=== PATIENT | male | born 1945 | race Caucasian/White ===

== ENCOUNTER 2018-08-18 12:37 | Emergency (ER) | payer MEDICARE, MEDICAID ==
[~2018-08-18] VITALS: Ht 177.8 cm; Wt 109.1 kg
[~2018-08-18 12:37] MED LIST: ONDA4TAB6 PO
[2018-08-18 12:39] VITALS: BP 110/46
[2018-08-18] MEDS ORDERED: HYDROcodone/acetaminophen 10/325mg tab PO PRN (13:25)
[2018-08-18] MEDS ORDERED: HYDR-4383 PO (13:29)
[2018-08-18] MEDS ORDERED: ketorolac trometh inj. 60 MG/2 ML VIAL IM ONE (14:00)
== END 2018-08-18 14:16 | disposition home or self-care (01) ==
LOC: ER 12:37
DX: S52.591A Other fractures of lower end of right radius, initial encounter for closed fracture (principal); I25.10 Atherosclerotic heart disease of native coronary artery without angina pectoris; I10 Essential (primary) hypertension; I25.2 Old myocardial infarction; E11.9 Type 2 diabetes mellitus without complications; G89.29 Other chronic pain; Z90.49 Acquired absence of other specified parts of digestive tract; Z79.899 Other long term (current) drug therapy; W01.0XXA Fall on same level from slipping, tripping and stumbling without subsequent striking against object, initial encounter; Y93.89 Activity, other specified; Y92.89 Other specified places as the place of occurrence of the external cause; Y99.8 Other external cause status
CPT/HCPCS: 29125; 73110; 96372; 99284; J1885

== ENCOUNTER 2018-08-22 13:03 | Outpatient (CLI) | payer MEDICARE, MEDICAID ==
[~2018-08-22 13:03] MED LIST changes: +HYDR-4383 PO
[2018-08-22 13:06] VITALS: BP 100/69
[2018-08-22] MEDS ORDERED: LIDOcaine 1%/PF 5ML 10 MG/ML VIAL ONE (13:45)
[2018-08-22 17:19] VITALS: BP 100/69
== END 2018-08-22 14:58 | disposition home or self-care (01) ==
LOC: ORTHO 13:03
PROVIDERS: ATTEND Nurse Practitioner Family
DX: S52.591A Other fractures of lower end of right radius, initial encounter for closed fracture (principal); E11.9 Type 2 diabetes mellitus without complications; I25.2 Old myocardial infarction; F17.200 Nicotine dependence, unspecified, uncomplicated; W01.0XXA Fall on same level from slipping, tripping and stumbling without subsequent striking against object, initial encounter; Y93.89 Activity, other specified; Y92.89 Other specified places as the place of occurrence of the external cause; Y99.8 Other external cause status
CPT/HCPCS: 73100; 73110; G0463; J2001

== ENCOUNTER 2018-09-04 11:17 | Outpatient (CLI) | payer MEDICARE, MEDICAID ==
[2018-09-04 11:14] VITALS: BP 110/74
== END 2018-09-04 11:41 | disposition home or self-care (01) ==
LOC: ORTHO 11:17
PROVIDERS: ATTEND Nurse Practitioner Family
DX: S52.591G Other fractures of lower end of right radius, subsequent encounter for closed fracture with delayed healing (principal); F17.210 Nicotine dependence, cigarettes, uncomplicated; F12.90 Cannabis use, unspecified, uncomplicated; E11.9 Type 2 diabetes mellitus without complications; G89.29 Other chronic pain; M19.90 Unspecified osteoarthritis, unspecified site; Z86.73 Personal history of transient ischemic attack (TIA), and cerebral infarction without residual deficits; W01.0XXD Fall on same level from slipping, tripping and stumbling without subsequent striking against object, subsequent encounter
CPT/HCPCS: 73100; 99213

== ENCOUNTER 2018-09-25 15:11 | Outpatient (CLI) | payer MEDICARE, MEDICAID ==
[2018-09-25 15:26] VITALS: BP 102/69
== END 2018-09-25 15:49 | disposition home or self-care (01) ==
LOC: ORTHO 15:11
PROVIDERS: ATTEND Orthopaedic Surgery
DX: S52.591G Other fractures of lower end of right radius, subsequent encounter for closed fracture with delayed healing (principal); E11.9 Type 2 diabetes mellitus without complications; I25.2 Old myocardial infarction; F17.200 Nicotine dependence, unspecified, uncomplicated; X58.XXXD Exposure to other specified factors, subsequent encounter
CPT/HCPCS: 73110; 99213

== ENCOUNTER 2019-07-17 12:40 | Emergency (ER) | payer MEDICARE, MEDICAID ==
[2019-07-17 13:37] LABS: BASOPHILS % (AUTO) 0.5 % (0-1); EOSINOPHILS # (AUTO) 0.3 X10'3 (0-0.9); EOSINOPHILS % (AUTO) 2.4 % (0-6); HEMOGLOBIN 15.4 g/dl (14.0-17.9); LYMPHOCYTES # (AUTO) 3.1 X10'3 (1.1-4.8); LYMPHOCYTES % (AUTO) 29.1 % (21-51); MEAN CORPUSCULAR HEMOGLOBIN 30.4 PG (27.0-31.0); MEAN CORPUSCULAR HGB CONC 34.3 g/dL (33.0-36.5); MEAN CORPUSCULAR VOLUME 88.6 FL (78-98); MEAN PLATELET VOLUME 7.6 FL (7.4-10.4); MONOCYTES # (AUTO) 0.9 X10'3 (0-0.9); MONOCYTES % (AUTO) 8.5 % (2-12); NEUTROPHILS # (AUTO) 6.2 X10'3 (1.8-7.7); NEUTROPHILS % (AUTO) 59.5 % (42-75); PLATELET COUNT 280 X10'3 (140-440); RED BLOOD COUNT 5.08 X10'6 (4.70-6.10); RED CELL DISTRIBUTION WIDTH 12.7 % (11.5-14.5); WHITE BLOOD COUNT 10.5 X10'3 (4.5-11.0)
--- NOTE | 2019-07-17 13:46 | NUR ---
PT. to CT
[2019-07-17 13:47] LABS: ALANINE AMINOTRANSFERASE 15 U/L (12-78); ALBUMIN 3.6 G/DL (3.4-5.0); ALBUMIN/GLOBULIN RATIO 0.9 (1.1-1.5); ALKALINE PHOSPHATASE 102 IU/L (46-116); ANION GAP 9 (8-16); ASPARTATE AMINO TRANSFERASE 10 U/L (10-37); BILIRUBIN,TOTAL 0.3 MG/DL (0.1-1.0); BLOOD UREA NITROGEN 12 MG/DL (7-18); BUN/CREATININE RATIO 14.8 (5.4-32.0); CHLORIDE 104 MMOL/L (99-107); CREATININE 0.81 MG/DL (0.60-1.10); GLUCOSE 215 MG/DL (70-104); POTASSIUM 4.1 MMOL/L (3.5-5.1); SODIUM 137 MMOL/L (135-145); TOTAL CARBON DIOXIDE 24.5 MMOL/L (24-32); TOTAL PROTEIN 7.5 G/DL (6.4-8.2); eGFR > 90 ML/MIN
[2019-07-17 13:57] LABS: ETHANOL < 0.010 GM/DL (0.0-0.010)
[2019-07-17 14:08] LABS: PARTIAL THROMBOPLASTIN TIME 26 SECONDS (22-32)
[2019-07-17] MEDS ORDERED: acetaminophen 325mg tablet PO ONE (14:30)
[2019-07-17] MEDS ORDERED: iohexol 350MG/ML 100ml bottle IV ONE (15:14)
[2019-07-17 16:24] LABS: CLARITY,URINE CLEAR (Clear); COLOR,URINE YELLOW (Yellow); GLUCOSE, URINE NEGATIVE (Neg); KETONES,URINE NEGATIVE (Neg); LEUKOCYTE ESTERASE ,URINE NEGATIVE (Neg); NITRITES, URINE NEGATIVE (Neg); OCCULT BLOOD,URINE NEGATIVE (Neg); PH,URINE 5.5 (4.8-8.0); PROTEIN,URINE TRACE mg/dl (Neg); UROBILINOGEN,URINE 0.2 E.U/dL (0.2-1.0)
[2019-07-17 16:26] LABS: UA COLLECTION TYPE NON-SPECIFIED
[2019-07-17 16:29] LABS: URINE AMPHETAMINE SCREEN NEGATIVE (Neg); URINE BARBITUATE SCREEN NEGATIVE (Neg); URINE BENZODIAZEPINES SCREEN NEGATIVE (Neg); URINE CANNABINOID SCREEN NEGATIVE (Neg); URINE COCAINE SCREEN NEGATIVE (Neg); URINE METHADONE SCREEN NEGATIVE (Neg); URINE OPIATE SCREEN POSITIVE (Neg); URINE PHENCYCLIDINE SCREEN NEGATIVE (Neg)
[2019-07-17 16:31] LABS: BACTERIA,URINE NONE SEEN /HPF (Neg); RBC,URINE NONE SEEN /HPF (0-2); SQUAMOUS EPITHELIAL CELL,UR FEW /LPF (FEW); WBC,URINE 0-4 /HPF (0-4)
[2019-07-17 16:32] LABS: MUCUS STRANDS NONE SEEN /LPF (Neg)
[2019-07-17 17:14] VITALS: BP 130/45
== END 2019-07-17 17:12 | disposition home or self-care (01) ==
LOC: ER 12:42
DX: H49.02 Third [oculomotor] nerve palsy, left eye (principal); H02.402 Unspecified ptosis of left eyelid; E11.9 Type 2 diabetes mellitus without complications; H53.2 Diplopia; I25.10 Atherosclerotic heart disease of native coronary artery without angina pectoris; I10 Essential (primary) hypertension; I25.2 Old myocardial infarction; G89.29 Other chronic pain; F12.90 Cannabis use, unspecified, uncomplicated; F17.200 Nicotine dependence, unspecified, uncomplicated; Z79.4 Long term (current) use of insulin; Z90.49 Acquired absence of other specified parts of digestive tract
CPT/HCPCS: 36415; 70450; 70496; 71045; 80053; 80305; 80320; 81001; 82948; 84443; 85025; 85610; 85730; 93005; 99285; Q9967

== ENCOUNTER 2019-08-02 06:34 | Emergency (ER) | payer MEDICARE, MEDICAID ==
[~2019-08-02] VITALS: Ht 177.8 cm; Wt 97.3 kg
[2019-08-02] MEDS ORDERED: ketorolac trometh inj. 60 MG/2 ML VIAL IM ONE (07:00)
[2019-08-02] MEDS ORDERED: ketorolac trometh. 30mg/ml inj. IM ONE (07:00)
[2019-08-02 08:02] VITALS: BP 156/101
== END 2019-08-02 08:04 | disposition home or self-care (01) ==
LOC: ER 06:35
DX: R51 Headache (principal); I25.10 Atherosclerotic heart disease of native coronary artery without angina pectoris; I10 Essential (primary) hypertension; I25.2 Old myocardial infarction; E11.9 Type 2 diabetes mellitus without complications; F17.200 Nicotine dependence, unspecified, uncomplicated; F12.90 Cannabis use, unspecified, uncomplicated; Z72.89 Other problems related to lifestyle; Z98.890 Other specified postprocedural states; Z90.49 Acquired absence of other specified parts of digestive tract; Z79.899 Other long term (current) drug therapy
CPT/HCPCS: 96372; 99283; J1885

== ENCOUNTER 2021-01-05 18:31 | Emergency (ER) | payer MEDICARE, MEDICAID ==
[~2021-01-05] VITALS: Ht 177.8 cm; Wt 108.0 kg
[2021-01-05] MEDS ORDERED: normal saline 1000ML IV soln IVB ONE (18:40)
[2021-01-05 19:04] LABS: BASOPHILS # (AUTO) 0.1 X10'3 (0-0.2); BASOPHILS % (AUTO) 0.6 % (0-1); EOSINOPHILS # (AUTO) 0.1 X10'3 (0-0.9); LYMPHOCYTES # (AUTO) 1.2 X10'3 (1.1-4.8); LYMPHOCYTES % (AUTO) 9.8 % (21-51); MEAN CORPUSCULAR HEMOGLOBIN 29.9 PG (27.0-31.0); MEAN CORPUSCULAR HGB CONC 33.3 g/dL (33.0-36.5); MEAN PLATELET VOLUME 8.2 FL (7.4-10.4); MONOCYTES # (AUTO) 0.9 X10'3 (0-0.9); MONOCYTES % (AUTO) 7.8 % (2-12); NEUTROPHILS # (AUTO) 9.5 X10'3 (1.8-7.7); NEUTROPHILS % (AUTO) 80.8 % (42-75); PLATELET COUNT 283 X10'3 (140-440); RED CELL DISTRIBUTION WIDTH 13.4 % (11.5-14.5); WHITE BLOOD COUNT 11.7 X10'3 (4.5-11.0)
[2021-01-05] MEDS ORDERED: [UNRECOGNIZED DRUG - CODE] (19:05)
[2021-01-05] MEDS ORDERED: INSU100I31 SQ (19:05)
[2021-01-05] MEDS ORDERED: ATEN50TA8 PO (19:05)
[2021-01-05] MEDS ORDERED: VENL150C58 PO (19:05)
[2021-01-05] MEDS ORDERED: AMLO5TAB16 PO (19:05)
[2021-01-05] MEDS ORDERED: ROSU20TA31 PO (19:05)
[2021-01-05] MEDS ORDERED: FLEC100T PO (19:05)
[2021-01-05] MEDS ORDERED: CARB1TAB42 PO (19:05)
[2021-01-05] MEDS ORDERED: RIVA20TA PO (19:05)
[2021-01-05] MEDS ORDERED: LISI40TA13 PO (19:05)
[2021-01-05] MEDS ORDERED: FLO0.4C PO (19:05)
[2021-01-05] MEDS ORDERED: METF-438 PO (19:05)
[2021-01-05] MEDS ORDERED: GABA-534 (19:05)
[2021-01-05] MEDS ORDERED: DULA1.5P SQ (19:05)
[2021-01-05] MEDS ORDERED: TRAZ-256 PO (19:05)
[2021-01-05] MEDS ORDERED: HYDR-3972 PO (19:05)
[2021-01-05] MEDS ORDERED: [UNRECOGNIZED DRUG - CODE] (19:08)
[2021-01-05] MEDS ORDERED: DOCU100C40 PO (19:08)
[2021-01-05 19:23] LABS: ALBUMIN 3.1 G/DL (3.4-5.0); ANION GAP 12 (8-16); ASPARTATE AMINO TRANSFERASE 14 U/L (10-37); BILIRUBIN,TOTAL 0.5 MG/DL (0.1-1.0); BLOOD UREA NITROGEN 26 MG/DL (7-18); BUN/CREATININE RATIO 21.7 (5.4-32.0); CALCIUM 8.1 MG/DL (8.5-10.1); CHLORIDE 101 MMOL/L (99-107); GLUCOSE 155 MG/DL (70-104); LIPASE < 50 U/L (73-393); POTASSIUM 4.3 MMOL/L (3.5-5.1); SODIUM 137 MMOL/L (135-145); TOTAL CARBON DIOXIDE 24.2 MMOL/L (24-32); TROPONIN I < 0.04 NG/ML (0.0-0.05); eGFR 59 ML/MIN
[2021-01-05 19:43] LABS: ALANINE AMINOTRANSFERASE 7 U/L (12-78); ALBUMIN/GLOBULIN RATIO 0.8 (1.1-1.5); ALKALINE PHOSPHATASE 95 IU/L (46-116); TOTAL PROTEIN 6.8 G/DL (6.4-8.2)
[2021-01-05 21:22] LABS: CLARITY,URINE CLEAR (Clear); COLOR,URINE YELLOW (Yellow); GLUCOSE, URINE NEGATIVE (Neg); KETONES,URINE 15 mg/dl (Neg); LEUKOCYTE ESTERASE ,URINE NEGATIVE (Neg); NITRITES, URINE NEGATIVE (Neg); OCCULT BLOOD,URINE NEGATIVE (Neg); PROTEIN,URINE 100 mg/dl (Neg)
[2021-01-05 21:51] LABS: UA COLLECTION TYPE VOIDED
[2021-01-05 21:54] LABS: BACTERIA,URINE NONE SEEN /HPF (Neg); RBC,URINE 0-2 /HPF (0-2); SQUAMOUS EPITHELIAL CELL,UR NONE SEEN /LPF (FEW); WBC,URINE NONE SEEN /HPF (0-4)
[2021-01-05 22:43] VITALS: BP 108/70
== END 2021-01-05 22:46 | disposition home or self-care (01) ==
LOC: ER 18:31
DX: G89.29 Other chronic pain (principal); R53.1 Weakness; R29.6 Repeated falls; I10 Essential (primary) hypertension; E11.9 Type 2 diabetes mellitus without complications; I48.91 Unspecified atrial fibrillation; Z79.01 Long term (current) use of anticoagulants; E78.5 Hyperlipidemia, unspecified; F12.90 Cannabis use, unspecified, uncomplicated; I25.10 Atherosclerotic heart disease of native coronary artery without angina pectoris; I25.2 Old myocardial infarction; Z90.49 Acquired absence of other specified parts of digestive tract; Z79.4 Long term (current) use of insulin; Z79.899 Other long term (current) drug therapy
CPT/HCPCS: 36415; 70450; 71045; 80053; 81001; 82948; 83690; 84484; 85025; 93005; 96360; 96361; 99285; J7030